=== PATIENT | female | born 1980 | race Caucasian/White ===

== ENCOUNTER 2018-03-15 05:54 | Day surgery (SDC) | payer OTHER ==
[2018-03-15] MEDS ORDERED: SEVOFLURANE 15 MIN (07:00)
[2018-03-15] MEDS ORDERED: ONDANSETRON 4 MG INJ IV (07:30)
[2018-03-15] MEDS ORDERED: PROCHLORPERAZINE 10 MG INJ IV (07:30)
[2018-03-15] MEDS ORDERED: MEPERIDINE 25 MG INJ IV (07:30)
[2018-03-15] MEDS ORDERED: DIPHENHYDRAMINE 50 MG INJ IV (07:30)
[2018-03-15] MEDS ORDERED: FENTAnyl 50 MCG/ML VIAL IV ×3 (07:30)
[2018-03-15] MEDS ORDERED: HYDROmorphONE 1 MG/5 ML IV SYRINGE IV ×2 (07:30)
[2018-03-15] MEDS ORDERED: OXYCODONE/ACETAMINOPHEN (5/325) TAB PO (07:30)
[2018-03-15] MEDS ORDERED: PROPOFOL 20 ML (07:34)
[2018-03-15] MEDS ORDERED: MIDAZOLAM 1 MG/ML 2 ML INJ (07:34)
[2018-03-15] MEDS ORDERED: LIDOCAINE 2% (SDV) 5 ML INJ (07:34)
[2018-03-15] MEDS ORDERED: FENTAnyl 50 MCG/ML VIAL (07:41)
[2018-03-15] MEDS ORDERED: CEFAZOLIN 1 GM INJ (07:56)
[2018-03-15] MEDS ORDERED: ONDANSETRON 4 MG INJ (07:56)
[2018-03-15] MEDS ORDERED: FAMOTIDINE 20 MG INJ (07:56)
[2018-03-15] MEDS ORDERED: SUCCINYLCHOLINE CHLORIDE 100 MG/5 ML SYG IV (07:56)
[2018-03-15] MEDS ORDERED: ROCURONIUM 50 MG INJ (07:56)
[2018-03-15] MEDS ORDERED: DEXAMETHASONE 4 MG/ML 5 ML INJ (07:56)
[2018-03-15] MEDS: BUPIVACAINE 0.5%/EPI (SDV) 30 ML INJ (08:13)
[2018-03-15] MEDS ORDERED: NEOSTIGMINE 3 MG/3 ML SYRINGE (08:27)
[2018-03-15] MEDS ORDERED: GLYCOPYRROLATE 0.4 MG INJ (08:27)
[2018-03-15] MEDS ORDERED: KETOROLAC 30 MG INJ (08:42)
[2018-03-15] MEDS: HYDROmorphONE 1 MG/5 ML IV SYRINGE IV (09:16)
== END 2018-03-15 10:30 | disposition home or self-care (01) ==
LOC: SDS 05:54
DX: Z30.2 Encounter for sterilization (principal)
CPT/HCPCS: 58670; 88302